=== PATIENT | female | born 1965 | race Two or more races ===

== ENCOUNTER → 2018-01-22 | Outpatient (CLI) | payer OTHER | END | disposition home or self-care (01) | LOC: MAMO-SONO 09:10 | DX: Z12.31 Encounter for screening mammogram for malignant neoplasm of breast (principal); N64.89 Other specified disorders of breast ==

== ENCOUNTER 2018-04-28 14:50 | Outpatient (CLI) | payer OTHER | END 2018-04-28 15:00 | disposition home or self-care (01) | LOC: RAD 14:50 | DX: R05 Cough (principal) ==

== ENCOUNTER 2018-08-11 07:20 | Outpatient (CLI) | payer OTHER | END 2018-08-11 17:00 | disposition home or self-care (01) | LOC: SONOGRAMA 07:20 → MAMO-SONO 15:15 → SONOGRAMA 17:00 | DX: N95.0 Postmenopausal bleeding (principal) ==

== ENCOUNTER → 2019-03-23 | Outpatient (CLI) | payer OTHER | END | disposition home or self-care (01) | LOC: MAMO-SONO 07:59 | DX: Z12.31 Encounter for screening mammogram for malignant neoplasm of breast (principal); Z87.898 Personal history of other specified conditions; E04.8 Other specified nontoxic goiter; Z12.39 Encounter for other screening for malignant neoplasm of breast ==

== ENCOUNTER → 2020-06-21 | Outpatient (CLI) | payer OTHER | END | disposition home or self-care (01) | LOC: SONOGRAMA 13:26 → MAMO-SONO 13:45 | DX: N60.01 Solitary cyst of right breast (principal); N64.59 Other signs and symptoms in breast ==

== ENCOUNTER 2021-09-19 08:35 | Outpatient (CLI) | payer OTHER | END 2021-09-19 09:00 | disposition home or self-care (01) | LOC: MAMO-SONO 08:35 | PROVIDERS: ATTEND Specialist | DX: N60.11 Diffuse cystic mastopathy of right breast (principal); N60.12 Diffuse cystic mastopathy of left breast ==

== ENCOUNTER 2024-11-08 10:54 | Emergency (ER) | payer OTHER ==
[~2024-11-08] VITALS: Ht 157.5 cm; Wt 57.6 kg
[2024-11-08] MEDS ORDERED: ATORVASTATIN CA40 MG (11:46)
[2024-11-08] MEDS ORDERED: LOSARTAN POTASS25 MG (11:46)
[2024-11-08 13:49] LABS: ALBUMIN 4.2 gm/dL (3.4-5.0); BILIRUBIN TOTAL 0.62 mg/dL (0.3-1.2); BILIRUBIN,CONJUGATED 0.22 mg/dL (0.0-0.2); BILIRUBIN,UNCONJUGATED 0.4 mg/dL (0.0-0.6); CALCIUM 9.5 mg/dL (8.5-10.1); CREATININE SERUM 0.6 mg/dL (0.55-1.02); GFR 103.04; GLOBULINA 3.7 G/DL (2.4-3.5); POTASSIUM 4.09 mEq/L (3.5-5.1); TOTAL PROTEIN 7.9 gm/dL (6.4-8.2)
[2024-11-08 14:11] LABS: PH,URINE 6.5 (5.0-8.0); URINE APPEARANCE Clear; URINE BILIRRUBIN Negative (NEGATIVE); URINE BLOOD Negative; URINE COLOR Yellow; URINE GLUCOSE Negative (NEGATIVE); URINE KETONE Negative (NEGATIVE); URINE LEUKOCYTE Negative; URINE NITRATE Negative; URINE PROTEIN Negative (NEGATIVE); URINE UROBILINOGEN 0.2 E.U./dl
[2024-11-08 14:15] LABS: URINE BACTERIA 151.6 uL (0.0-1933); URINE EPITHELIAL CELLS 2.6 uL (0.0-38.8); URINE RBC 4.5 uL (0.0-20.8); URINE WBC 4.5 uL (0.0-23.2)
[2024-11-08 15:11] LABS: BASO % 0.8 % (0.1-1.2); EOS # 0.31 (0.04-0.54); EOS % 4.2 % (0.7-7.0); HEMATOCRIT 35.3 % (34.1-44.9); HEMOGLOBIN 11.6 g/dL (11.2-15.7); LYMPH % 32.7 % (19.3-53.1); MEAN CORPUSCULAR HEMOGLOBIN 27.6 pg (25.6-32.2); MONO % 5.4 % (4.7-12.5); NEUT # 4.17 (1.56-6.13); NEUT % 56.8 % (34.0-71.1); PLATELET COUNT 346 K/uL (163-369); RED BLOOD COUNT 4.21 M/uL (3.93-5.22); RED CELL DISTRIBUTION WIDTH 13.2 % (11.6-14.4)
== END 2024-11-08 15:05 | disposition home or self-care (01) ==
LOC: ER 10:54
DX: R79.89 Other specified abnormal findings of blood chemistry (principal); R10.11 Right upper quadrant pain; M54.50 Low back pain, unspecified; Z91.014 Allergy to mammalian meats